=== PATIENT | female | born 1990 | race Caucasian/White ===

== ENCOUNTER 2018-03-02 20:01 | Emergency (ER) | payer OTHER ==
[2018-03-02 20:07] VITALS: BP 102/75; PULSE 82; TEMP 98.2; BMI 34.1
--- NOTE | 2018-03-02 20:07 | PDOC ---
History of Present Illness - History of Present Illness Initial Comments: The patient is a 27 year old female with a PMHx of anxiety, who presents to the ED complaining of anxiety and hand numbness & tingling since last night. The patient states that last night her hands became tense and she began experiencing bilateral numbness and tingling. She states that she has had anxiety attacks in the past but this is the first time she has ever experienced numbness and tingling in her hands, which prompted her to come to the ER. She also notes internal tremors and increased rate of breathing. 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) <Trish Jalloh - Last Filed: 03/02/18 20:32> <Kin Torrez - Last Filed: 03/02/18 20:35> - General Chief Complaint: Psychiatric Stated Complaint: ANXIETY Time Seen by Provider: 03/02/18 20:05 Past History <Trish Jalloh - Last Filed: 03/02/18 20:32> - Past Medical History COPD: No Other medical history: Pt denies - Surgical History Abdominal Surgery: Yes (R adrenelectomy 08/24/14) - Suicide/Smoking/Psychosocial Hx Smoking History: Never smoked Have you smoked in the past 12 months: No Information on smoking cessation initiated: No Hx Alcohol Use: No Drug/Substance Use Hx: No Substance Use Type: None <Kin Torrez - Last Filed: 03/02/18 20:35> - Past Medical History Allergies/Adverse Reactions: Allergies Allergy/AdvReac Type Severity Reaction Status Date / Time No Known Allergies Allergy Verified 03/02/18 20:07 Home Medications: Ambulatory Orders Benzonatate [Tessalon Pearls -] 100 mg PO TID #21 capsule 07/06/16 Review of Systems - Review of Systems Comments:: A complete review of 10 out of 10 review of systems is taken and is negative apart from what is previously mentioned below and in the HPI. Constitutional: no recent illness; no fever ENT: no sore throat Cardiovascular: no palpitations; no chest pain Pulmonary: no cough; +tachypnea Gastrointestinal: No nausea; no vomiting; no diarrhea Genitourinary: No urinary problems; no hematuria Skin: No rash Lymph system: No swollen glands Musculoskeletal: No joint swelling Neurological: + b/l hand numbness and tingling. +internal body tremors. No weakness; No Headache; no vertigo; no lightheadedness Psychiatric:No anxiety; no depression <Trish Jalloh - Last Filed: 03/02/18 20:32> *Physical Exam - Vital Signs Last Vital Signs Temp Pulse Resp BP Pulse Ox 98.2 F 82 18 102/75 98 03/02/18 20:04 03/02/18 20:04 03/02/18 20:04 03/02/18 20:04 03/02/18 20:18 - Physical Exam Comments: Vitals: Triage Vital signs reviewed General Appearance: no acute distress, well nourished well developed Head: Atraumatic Eyes: Pupils equal reactive round, extraocular movement intact Extremities: Swelling and tenderness below the 3rd and 4th metacarpal joints. Skin: Warm and dry, no lesions, no rash, no petechiae Neuro: AOX3; Cranial Nerves 2-12 grossly intact, Strength intact to all extremities, Sensation intact to all extremities, gait normal Psych: Normal mood, normal affect <Trish Jalloh - Last Filed: 03/02/18 20:32> - Vital Signs Last Vital Signs Temp Pulse Resp BP Pulse Ox 98.2 F 82 18 102/75 98 03/02/18 20:04 03/02/18 20:04 03/02/18 20:04 03/02/18 20:04 03/02/18 20:04 <Kin Torrez - Last Filed: 03/02/18 20:35> Medical Decision Making - Medical Decision Making 03/02/18 20:35 Well-appearing no apparent distress 27 years old with past medical history significant for anxiety multiple stress factors at home feels generally weak with weakness in bilateral hands Patient states this has happened before but this episode seems to be lasting a little bit longer. She has never sought care for her anxiety On examination patient is neurologically intact cardiac: Exam is within normal limits I offered the patient blood work EKG and IV fluids however at this time patient states she is feeling better and would like to return home She will discussed with her primary care provider follow-up for possible anxiety she was instructed to return to the emergency department for symptoms return or for any concerns Findings, the need for follow-up and strict return instructions discussed with patient. <Kin Torrez - Last Filed: 03/02/18 20:35> *DC/Admit/Observation/Transfer - Attestations Scribe Attestion: 03/02/18 20:33 Documentation prepared by Trish Jalloh, acting as medical associate for Kin Torrez MD. <Trish Jalloh - Last Filed: 03/02/18 20:32> - Discharge Dispostion Decision to Admit order: No <Kin Torrez - Last Filed: 03/02/18 20:35> Diagnosis at time of Disposition: Hand weakness - Discharge Dispostion Disposition: HOME Condition at time of disposition: Good - Referrals Referrals: Maria Courtney MD [Primary Care Provider] - - Patient Instructions Printed Discharge Instructions: Anxiety and Panic Attacks (Alternative Therapy) Additional Instructions: Follow-up with your primary care provider tomorrow. Practiced breathing exercises as described. Emergency department. Return to the emergency department if symptoms return or for any concerns. - Post Discharge Activity
== END 2018-03-02 20:43 | disposition home or self-care (01) ==
LOC: FER 20:01
DX: M62.81 Muscle weakness (generalized) (principal); F41.9 Anxiety disorder, unspecified
CPT/HCPCS: 99284-25